=== PATIENT | female | born 1995 | race American Indian/Alaskan Native ===

== ENCOUNTER 2020-12-26 12:46 | Emergency (ER) | payer OTHER ==
[2020-12-26 13:44] VITALS: BP 149/100
--- NOTE | 2020-12-26 18:16 | Event Note ---
ED Screening Note Date of service: 12/26/20 Time: 17:54 ED Screening Note: 25-year-old female patient presents to the emergency department requesting HIV testing and STD testing following suspected exposure. Patient states she engaged in unprotected sexual intercourse recently and is concerned she may have contracted a communicable disease. Patient states she was experiencing lower abdominal pain last week. Denies fever, chills, nausea, vomiting, diarrhea, vaginal bleeding. Denies all other complaints at this time.
--- NOTE | 2020-12-26 18:21 | Emergency Department Report ---
Chief Complaint: Abdominal Pain Stated Complaint: POSS HIV EXPOSURE Time Seen by Provider: 12/26/20 17:25 - HPI History of Present Illness: 25-year-old female patient presents to the emergency department requesting HIV testing and STD testing following suspected exposure. Patient states she engaged in unprotected sexual intercourse recently and is concerned she may have contracted a communicable disease. Patient states she was experiencing lower abdominal pain last week. Denies fever, chills, nausea, vomiting, diarrhea, vaginal bleeding. Denies all other complaints at this time. - ROS Review of Systems: GENERAL: Negative for fever. CARDIOVASCULAR: Negative for chest pain. PULMONARY: Negative for shortness of breath. GASTROINTESTINAL: Negative for vomiting. MUSCULOSKELETAL: Negative for back pain. NEUROLOGICAL: Negative for headache. INTEGUMENTARY: Negative for rash. - Exam Vital Signs: Vital Signs 12/26/20 13:39 Temperature 98.2 F Pulse Rate 80 Respiratory 20 Rate Blood Pressure 149/100 O2 Sat by Pulse 100 Oximetry Physical Exam: General: Awake, appropriately interactive, no acute distress. Neck: Supple. Full range of motion intact. Cardiovascular: Normal peripheral perfusion. Pulmonary: No respiratory distress. Patient is speaking normally without use of accessory muscles. Skin: No apparent rashes or lesions. Neurological: No facial asymmetry. Speech is clear. Follows commands. Patient is alert and oriented. Musculoskeletal: Moves all four extremities spontaneously with normal range of motion. Psych: Cooperative. Appropriate mood and affect. ED Medical Decision Making - Medical Decision Making Patient presents to the emergency department with complaints of lower abdominal pain last week following unprotected sexual intercourse. Patient is requesting HIV testing and STD testing. She is afebrile. Vital signs are stable. Abdominal exam is benign. There is no clinical indication for emergent HIV testing. STD testing is currently unavailable at this facility. It was explained to the patient that screening for communicable diseases would need to be arranged on an outpatient basis at the local health department or outside clinic. Recommended patient undergo diagnostic work-up to rule out life- threatening causes of abdominal pain, including but not limited to: appendicitis, bowel obstruction/perforation, ovarian torsion, pelvic inflammatory disease, ectopic , pyelonephritis, etc. Patient refused diagnostic work-up and signed out AGAINST MEDICAL ADVICE. The patient chooses to leave AGAINST MEDICAL ADVICE. The patients ability to make an informed decision has been assessed and it has been determined that the patient has the capacity to comprehend the information about their current medical condition and appreciate the impact of the disease and the consequence of various options for treatment, including forgoing treatment. The patient possesses the ability to evaluate all treatment options, compare the risks and benefits of each option, communicate this choice in a consistent manner over time, and is able to make choices that are not irrational. The patient has been informed about the ideal further testing, treatments, and evaluations that may be indicated during the current emergency department visit as well as any possible alternatives that could be accomplished in a timely manner. The patient is aware of the possible risks of foregoing any or all of these interventions and the patient acknowledges that the decision to leave may result in undesirable consequences such as , permanent disability and/or loss of current lifestyle. Even through leaving AGAINST MEDICAL ADVICE is not ideal, the patient has been instructed to follow any discharge instructions given, take any medications prescribed, and resume care as soon as possible with another provider. Additionally, it has been clearly stated that the patient is welcome to return at any time to continue care at this facility. ED Disposition for MSE Clinical Impression: Left against medical advice Disposition: 01 HOME / SELF CARE / HOMELESS Is pt being admited?: No Does the pt Need Aspirin: No Condition: Undetermined Instructions: Abdominal Pain (ED) Additional Instructions: You have chosen to leave the emergency department AGAINST MEDICAL ADVICE. Life-threatening causes of abdominal pain cannot definitively be ruled out without further diagnostic work-up. Please follow-up with administrative program specialist and/your local health department for o utpatient communicable disease testing. Return to the emergency department immediately to resume care for new or worsening symptoms. Referrals: HANNA KRAFT MD [Staff Physician] - 3-5 Days [facility] [Outside] - 3-5 Days Time of Disposition: 18:21
== END 2020-12-26 18:30 | disposition home or self-care (01) ==
LOC: ED 12:46
DX: R10.30 Lower abdominal pain, unspecified (principal)
CPT/HCPCS: 99282